=== PATIENT | female | born 1960 | race Two or more races ===

== ENCOUNTER 2018-03-12 11:24 | Outpatient (CLI) | payer OTHER ==
[~2018-03-12 11:24] MED LIST: ACETAMINOOPHEN-1 TAB PO; CATAFLAM50 MG PO; CIPRO500 MG PO; FLAGYL500MG PO; NORVASC5 MG
== END 2018-03-12 11:28 | disposition home or self-care (01) ==
LOC: SONOGRAMA 11:24
DX: R22.1 Localized swelling, mass and lump, neck (principal)

== ENCOUNTER 2024-06-02 14:25 | Outpatient (CLI) | payer OTHER | END 2024-06-02 14:35 | disposition home or self-care (01) | LOC: RAD 14:25 | PROVIDERS: ATTEND Physical Medicine & Rehabilitation | DX: M54.2 Cervicalgia (principal); M25.512 Pain in left shoulder; W19.XXXA Unspecified fall, initial encounter; S60.222A Contusion of left hand, initial encounter ==